=== PATIENT | female | born 1985 | race Caucasian/White ===

== ENCOUNTER → 2017-04-22 | Day surgery (SDC) | payer OTHER ==
[~2017-04-22] VITALS: Ht 170.2 cm; Wt 140.6 kg
[~2017-04-22] MED LIST: ANUCORT-HC25 MG R; ARIPIPRAZOLE15 MG PO; BRINTELLIX20 MG PO; BUSPAR10 MG PO; BYSTOLIC2.5 MG PO; EFFEXOR XR150 MG PO; EFFEXOR75 MG PO; LATUDA80 MG PO; LEVOTHROID(SYN75 MCG PO; LITHOBID300 MG PO; NAPROSYN500 MG PO; PREVACID 24HR15 MG PO; PROTONIX40 MG PO; SINGULAIR10 MG PO; TRINTELLIX 20 MG PO; ULTRAM50 MG PO; VISTARIL50 MG PO
== END | disposition disaster alternative care site (69) ==
LOC: GPOC 04-16 10:00 → GEND 06:57
PROC: 0DB98ZX Excision of Duodenum, Via Natural or Artificial Opening Endoscopic, Diagnostic (ICD-10-PCS; principal; 2017-04-22)
PROC: 0DB68ZX Excision of Stomach, Via Natural or Artificial Opening Endoscopic, Diagnostic (ICD-10-PCS; 2017-04-22)
DX: K29.50 Unspecified chronic gastritis without bleeding (principal); K44.9 Diaphragmatic hernia without obstruction or gangrene; I10 Essential (primary) hypertension; F31.9 Bipolar disorder, unspecified; E03.9 Hypothyroidism, unspecified; E66.01 Morbid (severe) obesity due to excess calories; Z68.41 Body mass index [BMI] 40.0-44.9, adult; Z79.899 Other long term (current) drug therapy; Z88.2 Allergy status to sulfonamides; Z88.8 Allergy status to other drugs, medicaments and biological substances; Z90.49 Acquired absence of other specified parts of digestive tract; Z98.890 Other specified postprocedural states
CPT/HCPCS: J2001; J7030; Q9967